=== PATIENT | male | born 1990 | race African-American/Black ===

== ENCOUNTER 2023-05-23 16:50 | Emergency (ER) | payer OTHER ==
[~2023-05-23] VITALS: Ht 180.3 cm; Wt 106.6 kg
[2023-05-23 17:10] VITALS: BP_SYST 150; PULSE 90; RESP 18; TEMP 98.5; O2SAT 98
[2023-05-23] MEDS ORDERED: AZITHROMYCIN 250 MG TABLET PO ONE (17:30)
[2023-05-23] MEDS ORDERED: cefTRIAXone 250 MG VIAL IM ONE (17:30)
[2023-05-23] MEDS ORDERED: LIDOCAINE 2%, 20 ML MDV ONE (17:42)
[2023-05-23] MEDS ORDERED: LIDOCAINE 1%, 20 ML MDV 20 ML ONE (17:46)
[2023-05-23 18:14] VITALS: RESP 18; TEMP 98.5; O2SAT 98
== END 2023-05-23 18:14 | disposition home or self-care (01) ==
LOC: SED 16:50
DX: T74.21XA Adult sexual abuse, confirmed, initial encounter (principal); Z79.899 Other long term (current) drug therapy; Y99.8 Other external cause status
CPT/HCPCS: 99283; 96372; J0696; Q0144; J2001